=== PATIENT | female | born 1970 | race Caucasian/White ===

== ENCOUNTER 2020-02-21 14:24 | Emergency (ER) | payer OTHER ==
[~2020-02-21] VITALS: Ht 162.6 cm; Wt 79.5 kg
[2020-02-21 14:57] VITALS: BP 155/84
--- NOTE | 2020-02-21 15:18 | PHYS DOC ---
Past Medical History Past Medical History: GERD, High Cholesterol, Hypertension, Migraines Past Surgical History: Tonsillectomy Smoking Status: Current Some Day Smoker Alcohol Use: None Drug Use: None General Adult EDM: Chief Complaint: PAIN ON URINATION HPI: HPI: Patient is a 49 year old female who presents the ED today complaining of dysuria that began last week. Patient reports being seen at urgent care, she states she was diagnosed with UTI and given Bactrim which she finished. She states symptoms did not improve. Denies any fever, abdominal pain, nausea vomiting. Review of Systems: Review of Systems: Constitutional: Denies fever or chills. [] Eyes: Denies change in visual acuity. [] HENT: Denies nasal congestion or sore throat. [] Respiratory: Denies cough or shortness of breath. [] Cardiovascular: Denies chest pain or edema. [] GI: Denies abdominal pain, nausea, vomiting, bloody stools or diarrhea. [] : Reports dysuria Musculoskeletal: Denies back pain or joint pain. [] Integument: Denies rash. [] Neurologic: Denies headache, focal weakness or sensory changes. [] Psychiatric: Denies depression or anxiety. [] Heart Score: Risk Factors: Risk Factors: DM, Current or recent (<one month) smoker, HTN, HLP, family history of CAD, obesity. Risk Scores: Score 0 - 3: 2.5% MACE over next 6 weeks - Discharge Home Score 4 - 6: 20.3% MACE over next 6 weeks - Admit for Clinical Observation Score 7 - 10: 72.7% MACE over next 6 weeks - Early Invasive Strategies Allergies: Allergies: Allergies Coded Allergies Type Severity Reaction Last Updated Verified No Known Drug Allergies 11/03/15 No Physical Exam: PE: Constitutional: Well developed, well nourished, no acute distress, non-toxic appearance. [] HENT: Normocephalic, atraumatic, bilateral external ears normal, oropharynx moist, no oral exudates, nose normal. [] Eyes: PERRLA, EOMI, conjunctiva normal, no discharge. [] Neck: Normal range of motion, no tenderness, supple, no stridor. [] Cardiovascular:Heart rate regular rhythm, no murmur [] Lungs & Thorax: Bilateral breath sounds clear to auscultation [] Abdomen: Bowel sounds normal, soft, no tenderness, no masses, no pulsatile masses. [] Skin: Warm, dry, no erythema, no rash. [] Back: No tenderness, no CVA tenderness. [] Extremities: No tenderness, no cyanosis, no clubbing, ROM intact, no edema. [] Neurologic: Alert and oriented X 3, normal motor function, normal sensory function, no focal deficits noted. [] Psychologic: Affect normal, judgement normal, mood normal. [] EKG: EKG: [] Radiology/Procedures: Radiology/Procedures: [] Course & Med Decision Making: Course & Med Decision Making Pertinent Labs and Imaging studies reviewed. (See chart for details) This is a 49-year-old female patient presenting to the ED today with dysuria for a week. Was on Bactrim which she completed. She reports no improvement. Urine analysis is negative for infection. Urine will be sent for culture. Talked to patient about her options including following up with the PCP as well as urologist. Discharged on Pyridium. Encouraged to continue pushing fluids. She does not have back pain, nausea or vomiting. She is afebrile. BFKW Disclaimer: BFKW Disclaimer: This electronic medical record was generated, in whole or in part, using a voice recognition dictation system. Departure Departure Impression: Primary Impression: Dysuria Disposition: 01 HOME, SELF-CARE Condition: STABLE Referrals: LUCERO LOPEZ (PCP) follow up as soon as you can Patient Instructions: Dysuria-Brief Additional Instructions: Your urine analysis is negative for any infection. As discussed consider following up with your primary care doctor as well as [facility]. Scripts Phenazopyridine Hcl (PYRIDIUM) 100 Mg Tablet 1 TAB PO TID for urinary discomfort for 3 Days, #9 TAB 0 Refills Prov: LAUREN ZUÑIGA APRN 02/21/20 Justicifation of Admission Dx: Justifications for Admission: Justification of Admission Dx: N/A LAUREN ZUÑIGA APRN Feb 21, 2020 15:18
[2020-02-21 15:29] LABS: BILIRUBIN,URINE NEGATIVE (NEG); CLARITY,URINE CLEAR; COLOR,URINE YELLOW; NITRITE,URINE NEGATIVE (NEG); PH,URINE 6.5 (<5.0-8.0); PROTEIN,URINE NEGATIVE (NEG-TRACE); UROBILINOGEN,URINE 0.2 mg/dL (0.2 mg/dL)
[2020-02-21 15:45] LABS: BACTERIA,URINE FEW /HPF (0-FEW); RBC,URINE 0 /HPF (0-2); SQUAMOUS EPITHELIAL CELL,UR FEW /LPF; WBC,URINE 0 /HPF (0-4)
[2020-02-21] MEDS ORDERED: PHENAZOPYRIDINE 200 MG TABLET. PO ONE (16:15)
[2020-02-21] MEDS ORDERED: TAMSULOSIN 0.4 MG CAP.ER.24H. PO ONE (16:15)
[2020-02-21] MEDS ORDERED: PHEN100T82 PO (16:34)
== END 2020-02-21 16:47 | disposition home or self-care (01) ==
LOC: ER 14:24
DX: R30.0 Dysuria (principal); K21.9 Gastro-esophageal reflux disease without esophagitis; E78.00 Pure hypercholesterolemia, unspecified; I10 Essential (primary) hypertension; G43.909 Migraine, unspecified, not intractable, without status migrainosus; F17.200 Nicotine dependence, unspecified, uncomplicated
CPT/HCPCS: 81001; 81025; 99282; 99283

== ENCOUNTER → 2020-12-01 | Outpatient (CLI) | payer OTHER ==
[~2020-12-01] MED LIST: CLONAZEPAM1 MG PO; FAMO40TA4 PO; LISI20TA18 PO; METO100T5 PO; OMEP-346 PO; PHEN100T82 PO; PRAV20TA2 PO; TOPI50TA8 PO
[2020-12-01 13:58] LABS: BASO # 0.1 x10^3/uL (0.0-0.2); BASO % 1 % (0-3); EOS # 0.2 x10^3/uL (0.0-0.7); EOS % 2 % (0-3); HEMATOCRIT 36.9 % (36.0-47.0); HEMOGLOBIN 12.2 g/dL (12.0-15.5); LYMPH # 2.7 x10^3/uL (1.0-4.8); LYMPH % 31 % (24-48); MEAN CORPUSCULAR HEMOGLOBIN 27 pg (25-35); MEAN CORPUSCULAR HGB CONC 33 g/dL (31-37); MEAN CORPUSCULAR VOLUME 81 fL (79-100); MONO # 0.6 x10^3/uL (0.0-1.1); MONO % 7 % (0-9); NEUT # 5.2 x10^3/uL (1.8-7.7); NEUT % 59 % (31-73); PLATELET COUNT 304 x10^3/uL (140-400); RED BLOOD COUNT 4.57 x10^6/uL (3.50-5.40); RED CELL DISTRIBUTION WIDTH 14.4 % (11.5-14.5); WHITE BLOOD COUNT 8.8 x10^3/uL (4.0-11.0)
[2020-12-01 14:10] LABS: BILIRUBIN,URINE NEGATIVE (NEG); CLARITY,URINE CLEAR; COLOR,URINE YELLOW; NITRITE,URINE NEGATIVE (NEG); PROTEIN,URINE NEGATIVE (NEG-TRACE); UROBILINOGEN,URINE 0.2 mg/dL (0.2 mg/dL)
[2020-12-01 14:10] LABS: ALBUMIN 3.7 g/dL (3.4-5.0); CALCIUM 8.8 mg/dL (8.5-10.1); GFR 58.2; POTASSIUM 3.6 mmol/L (3.5-5.1); TOTAL BILIRUBIN 0.2 mg/dL (0.2-1.0); TOTAL PROTEIN 7.5 g/dL (6.4-8.2)
--- NOTE | 2020-12-01 14:11 | EKG ---
[facility] [address] [place] [address] Test Date: 2020-12-01 Test Time: 14:06:47 Pat Name: LUCILA VACA Department: Room: Gender: F Glove Turner: : 1970 Requested By: IVORY CALL Order Number: [id number] Reading MD: Jace Galindo Measurements Intervals Ethel Rate: 50 P: 54 MD: 164 QRS: 64 QRSD: 80 T: 59 QT: 458 QTc: 416 Interpretive Statements SINUS RHYTHM T ABNORMALITY IN ANTEROSEPTAL LEADS ABNORMAL ECG RI6.02 No previous ECG available for comparison Electronically Signed On 12-05-2020 8:58:16 CDT by Jace Galindo
[2020-12-01 14:16] LABS: BACTERIA,URINE 0 /HPF (0-FEW)
[2020-12-01 14:17] LABS: HYALINE CASTS, URINE FEW /HPF; RBC,URINE 0 /HPF (0-2); WBC,URINE 0 /HPF (0-4)
--- NOTE | 2020-12-01 14:34 | RAD ---
AP and Lateral Views of the Chest 12/01/2020 2:20 PM Indication: Reason: PRE OP HYSTERECTOMY DECEMBER 07. Instructions: / History: Comparison: None Findings: There is no focal consolidation or infiltrate identified. The cardiomediastinal silhouette is within normal limits. There is no evidence of pneumothorax or pleural effusion. No acute osseous a bnormalities are identified. Impression: No evidence of acute cardiopulmonary process. Electronically signed by: Raúl Lloyd MD (12/01/2020 2:31 PM) [id number]
[2020-12-02 04:26] LABS: HEMOGLOBIN A1C 6.1 % (4.8-5.6)
--- NOTE | 2020-12-05 10:09 | NUR ---
Pretesting Lab, chest xray and ekg results faxed to Dr. Veliz and confirmation received.
== END ==
LOC: SURGPAT 13:31
PROVIDERS: ATTEND Obstetrics & Gynecology
DX: Z01.818 Encounter for other preprocedural examination (principal); I10 Essential (primary) hypertension; R94.31 Abnormal electrocardiogram [ECG] [EKG]
CPT/HCPCS: 36415; 71046; 80053; 81001; 83036; 85025; 93005

== ENCOUNTER → 2020-12-07 | Day surgery (SDC) | payer OTHER ==
[2020-12-01 13:47] VITALS: BP 133/63
[~2020-12-07] VITALS: Ht 162.6 cm; Wt 75.0 kg
[~2020-12-07] MED LIST changes: +BUPIVACAINE-EPI 0.25% 30 ML VIAL KIT. ONE; +ESTROGENS, CONJ VAGINAL CREAM 30GM TUBE. ONE; +HYDROmorphone 2 MG/ML VIAL IVP PRN; +INDIGOTINDISULFONATE SODIUM 40 MG/5 ML AMPUL. ONE; +IV RINGERS,LACTATED 1000ML 1,000 ML IV SCH; +LIDOCAINE 2% PF 5 ML VIAL. ONE; +MIDAZOLAM HCL/PF 2 MG/2 ML VIAL. ONE; +MORPHINE SULFATE 2 MG/ML VIAL. IVP PRN; +ONDANSETRON PF 4 MG/2 ML VIAL. ONE; +PROCHLORPERAZINE 10 MG/2 ML VIAL. IVP PRN; +PROPOFOL 10 MG/ML (20ML) VIAL. IV ONE; +ROCURONIUM 50 MG/5 ML VIAL. ONE; +fentaNYL PF VIAL 100 MCG/2 ML VIAL IVP PRN; +fentaNYL PF VIAL 100 MCG/2 ML VIAL ONE
[2020-12-07 06:27] VITALS: BP 133/63
== END | disposition home or self-care (01) ==
LOC: SURG 06:01
PROVIDERS: ATTEND Obstetrics & Gynecology
DX: N93.9 Abnormal uterine and vaginal bleeding, unspecified (principal); Z53.8 Procedure and treatment not carried out for other reasons; I10 Essential (primary) hypertension; E78.00 Pure hypercholesterolemia, unspecified; K21.9 Gastro-esophageal reflux disease without esophagitis; M19.90 Unspecified osteoarthritis, unspecified site; Z98.51 Tubal ligation status; Z98.890 Other specified postprocedural states; Z79.899 Other long term (current) drug therapy
CPT/HCPCS: 36415; 81025; J0690; J2250; J2405; J2704; J3010; J3490

== ENCOUNTER 2020-12-13 08:11 | Observation (INO) | payer OTHER ==
[2020-12-07 09:07] VITALS: BP_SYST 114; BP_SYST 133; BP_DIAS 56; BP_DIAS 63
[2020-12-13] VITALS (9 sets, daily range): BP systolic 89–101; BP diastolic 40–58
[~2020-12-13] VITALS: Ht 162.6 cm; Wt 75.0 kg
[~2020-12-13 08:11] MED LIST changes: -ESTROGENS, CONJ VAGINAL CREAM 30GM TUBE. ONE; -HYDROmorphone 2 MG/ML VIAL IVP PRN; -INDIGOTINDISULFONATE SODIUM 40 MG/5 ML AMPUL. ONE; -IV RINGERS,LACTATED 1000ML 1,000 ML IV SCH; -LIDOCAINE 2% PF 5 ML VIAL. ONE; -MIDAZOLAM HCL/PF 2 MG/2 ML VIAL. ONE; -MORPHINE SULFATE 2 MG/ML VIAL. IVP PRN; -ONDANSETRON PF 4 MG/2 ML VIAL. ONE; -PROCHLORPERAZINE 10 MG/2 ML VIAL. IVP PRN; -PROPOFOL 10 MG/ML (20ML) VIAL. IV ONE; -ROCURONIUM 50 MG/5 ML VIAL. ONE; -fentaNYL PF VIAL 100 MCG/2 ML VIAL IVP PRN; -fentaNYL PF VIAL 100 MCG/2 ML VIAL ONE
[2020-12-13] MEDS ORDERED: MIDAZOLAM HCL/PF 2 MG/2 ML VIAL. ONE (08:37)
[2020-12-13] MEDS ORDERED: PROPOFOL 10 MG/ML (20ML) VIAL. IV ONE (08:37)
[2020-12-13] MEDS ORDERED: fentaNYL PF VIAL 250 MCG/5 ML VIAL ONE (08:37)
[2020-12-13] MEDS ORDERED: LIDOCAINE 2% PF 5 ML VIAL. ONE (08:37)
[2020-12-13] MEDS ORDERED: ROCURONIUM 50 MG/5 ML VIAL. ONE (08:38)
[2020-12-13] MEDS ORDERED: IV RINGERS,LACTATED 1000ML 1,000 ML IV ONE (09:00)
[2020-12-13] MEDS ORDERED: fentaNYL PF VIAL 100 MCG/2 ML VIAL IVP PRN ×2 (10:00)
[2020-12-13] MEDS ORDERED: IV RINGERS,LACTATED 1000ML 1,000 ML IV SCH (10:00)
[2020-12-13] MEDS ORDERED: MORPHINE SULFATE 2 MG/ML VIAL. IVP PRN (10:00)
[2020-12-13] MEDS ORDERED: HYDROmorphone 2 MG/ML VIAL IVP PRN (10:00)
[2020-12-13] MEDS ORDERED: GLYCOPYRROLATE 1 MG/5 ML VIAL. ONE (10:43)
[2020-12-13] MEDS ORDERED: NEOSTIGMINE METHYLSULFATE 5 MG/5 ML SYRINGE. ONE (10:43)
[2020-12-13] MEDS ORDERED: SEVOFLURANE > 120 MINUTES. IH ONE (11:44)
[2020-12-13] MEDS ORDERED: PROCHLORPERAZINE 10 MG/2 ML VIAL. ONE (12:15)
[2020-12-13] MEDS: PROCHLORPERAZINE 10 MG/2 ML VIAL. IVP PRN ×2 (12:17→12:25)
--- NOTE | 2020-12-13 12:22 | PDOC ---
BRIEF OPERATIVE NOTE Date: Dec 13, 2020 Pre-Op Diagnosis DUB/fibroids Post-Op Diagnosis same Procedure Performed LAVH/BSO Surgeon Dr. Yessy Call Assistant Professor Sculpture GAYLA Jackman Anesthesiologist Dr. Dumont Anesthesia Type: General Blood Loss 25cc IV Fluid 1L Urine Output 200cc clear Specimens Obtained cervix, uterus, bilateral tubes and ovaries Findings enlarged RV uterus, evidence of tubal ligation, cyst on right ovary Complications none Operative Note [id number] YESSY CALL MD Dec 13, 2020 12:22
[2020-12-13] MEDS ORDERED: oxyCODONE/APAP 5/325 1 TAB TABLET PO PRN (12:30)
[2020-12-13] MEDS ORDERED: 0.9 % SODIUM CHLORIDE 10 ML DISP.SYRIN. IV PRN (12:30)
[2020-12-13] MEDS ORDERED: CALCIUM CARBONATE 500 MG TAB.CHEW PO PRN (12:30)
[2020-12-13] MEDS ORDERED: MAG HYDROX/ALUMINUM HYD/SIMETH 30 ML ORAL.SUSP PO PRN (12:30)
[2020-12-13] MEDS ORDERED: ONDANSETRON PF 4 MG/2 ML VIAL. IV PRN (12:30)
[2020-12-13] MEDS ORDERED: diphenhydrAMINE 50 MG/ML VIAL IV PRN (12:30)
[2020-12-13] MEDS ORDERED: NALOXONE 0.4 MG/ML VIAL. IV PRN (12:30)
[2020-12-13] MEDS ORDERED: MORPHINE SULFATE 2 MG/ML VIAL. IV PRN (12:30)
[2020-12-13] MEDS ORDERED: SIMETHICONE 80 MG TAB.CHEW PO PRN (12:30)
[2020-12-13] MEDS ORDERED: MAGNESIUM HYDROXIDE 2,400 MG/30 ML ORAL.SUSP. PO PRN (12:30)
[2020-12-13] MEDS ORDERED: ZOLPIDEM 5 MG TABLET. PO PRN (12:30)
[2020-12-13] MEDS ORDERED: diphenhydrAMINE HCL 25 MG CAPSULE PO PRN (12:30)
[2020-12-13] MEDS ORDERED: LACTULOSE 20 GM/30 ML SOLUTION. PO PRN (12:30)
[2020-12-13] MEDS ORDERED: ESTRADIOL WEEKLY 0.1 MG PATCH. TD ONE (12:30)
--- NOTE | 2020-12-13 13:00 | NUR ---
Arrived to unit by bed. Awakens easily. No c/o at this time. Needing to use bathroom. Ambulated to bathroom with steady gait. Voided and returned back to bed. IVF's intact and infusing. O2 at 2l per n/c. SCD's on bilaterally. 3 Lap sites intact with some shadowing on all 3. Oriented to room and controls. Side rails up x's 2 with call light in reach. Spouse at bedside. Cont. monitor.
--- NOTE | 2020-12-13 13:06 | OP ---
DATE OF SURGERY: 12/13/2020 PREOPERATIVE DIAGNOSES: Dysfunctional uterine bleeding and fibroids. POSTOPERATIVE DIAGNOSES: Dysfunctional uterine bleeding and fibroids. PROCEDURES: Laparoscopic-assisted vaginal hysterectomy, bilateral salpingo-oophorectomy. SURGEON: Yessy Veliz MD PHOTOGRAMMETRIC COMPILATION SPECIALIST: GAYLA Tobar ANESTHESIOLOGIST: Dr. Dumont. ANESTHESIA: General. BLOOD LOSS: 25 mL URINE OUTPUT: 200 mL clear via Fishman catheter. IV FLUIDS: 1 liter of crystalloid. SPECIMENS: Cervix, uterus, bilateral tubes and ovaries. FINDINGS: An enlarged retroverted uterus. Evidence of tubal ligation and a small cyst on the right ovary. She also had some adhesive disease present in the upper abdomen on both sides, not exactly sure what this is from. She only had a bilateral tubal ligation as her prior abdominal surgery. This was not touched. It was out of our way and left alone. COMPLICATIONS: None. DESCRIPTION OF PROCEDURE: This patient was taken to the operating room where general anesthesia was placed. The patient was placed in dorsal lithotomy position in Ramakrishna stirrups. The patient's abdomen and vagina were both prepped and draped in the normal sterile fashion and a Fishman catheter had been inserted under sterile technique. Upon my arrival, a timeout was performed. Once everyone agreed on the patient, the site and the procedure, the antibiotics, the procedure was initiated. A bivalve speculum was placed in the patient's vagina. A single-tooth tenaculum was used to grasp the anterior lip of the cervix. A 10 mL of 0.25% Marcaine with epinephrine was used to circumferentially inject around the cervix for both hemodissection and hemostatic purposes later. The Valtchev uterine manipulator was placed through the endocervical os, locked on the single tooth tenaculum and the bivalve speculum was then removed. Top gloves were discarded and changed. Attention was then turned to the abdomen where a small infraumbilical skin incision was made over the existing scar. It was injected first with local 0.25% Marcaine with epinephrine, making a small incision using a curved Layne to dissect through the subcuticular layer of the fascia. The 5 mm Visiport was used to directly enter the abdominal cavity. Opening patient pressure was 3-4 mmHg. A direct abdominal placement was confirmed via the laparoscope. Carbon dioxide gas was used to appropriately insufflate the abdominal cavity to maintain a pressure of 15 mmHg. The overhead lights were dimmed and the patient was placed in Trendelenburg position. There were no adhesions to the anterior abdominal wall just in the right and left upper quadrants laterally to the sidewalls, so the abdomen was transilluminated finding an area clear of any vasculature. It was injected. A small incision was made and the 5 mm disposable atraumatic ports were placed under direct visualization for right and left lower quadrant ports. A 4-5 mL of air was placed in the trocar cuff. The camera was moved laterally to look at the umbilical port. Once it was found to be in the correct location, it was also insufflated with the 4-5 mL of air in the trocar cuff. Camera was moved back to the midline. The uterus was severely retroverted, very difficult to lift. The right upper quadrant was grossly normal. There were some adhesions in the middle area, in the pericolic gutter areas on both sides that were left alone. The appendix was free and normal on the right side, the left tube and ovary were normal. The right tube was okay. Just there was a cyst on the right ovary, but there was evidence of bilateral tubal ligation. She had an enlarged retroverted uterus that was filling the cul-de-sac. Once it was up and out, the ureters were seen on both sides coursing low in the pelvis. I could watch them peristalsing go down, so staying high on the infundibulopelvic ligament. Both tubes and ovaries were taken, cauterizing and cutting the IP ligament going over to the uterus and then crossing the rounds. This was done on both sides. The bladder flap was created sharply using an elevating pushing the uterus cephalad to the head of the bed using the Maryland to elevate the bladder flap and using the monopolar hook to cut across it. Once this was done, the uterine vessels were obtained on the right side and staying inside that pedicle, hugging the posterior uterus, cauterizing and cutting through the cardinal and broad ligaments and then crossing contralaterally and hugging the uterus and going down the side staying right on the cervix and uterus, the uterus was completely free and it started to homer. At this point, all instruments were removed and it was decided to go vaginally. The single tooth and Valtchev were removed. The weighted speculum was placed in the vagina. Thyroid Fabiana clamps were placed on the anterior and posterior lips of the cervix respectively. A scalpel was used to make a circumferential incision in the cervix. The posterior cul-de-sac was sharply entered with the curved Diallo scissors. A #0 Vicryl stitch was used to secure the posterior peritoneum here to the vaginal cuff. It was tagged with a curved Layne clamp. The needle was cut and passed off. The short weighted vaginal speculum was removed and replaced with the long Yvan speculum in the posterior cul-de-sac. The anterior was then sharply and bluntly, first using the tip of the suction to gently give traction and using the scalpel to gently push up the peritoneum off the cervix, the bladder peritoneum and then using an open Ray-Roshan 4 x 4 to gently push it up more. We were one cell layer away. I went ahead and took the right and left uterosacrals but the curved Westville was in that was literally one cell layer away entering the anterior cul-de-sac. Curved Christiano clamps x 2 were placed on the left uterosacral ligament where they were doubly clamped with curved Christiano's, cut with curved Diallo scissors and suture ligated x 2 with 0 Vicryl. The second one was taken through the vaginal cuff, securing the uterosacral ligament to the vaginal cuff and the needle was cut and passed off. This was done exactly the same on the right side, double clamping the uterosacrals with curved Heaneys, cutting with curved Diallo scissors, suture ligating x 2 with 0 Vicryl, taking the second one through the vaginal cuff, securing uterosacral ligament to the vaginal cuff, cutting and the needle off and tagging it with a straight Layne clamp. At this point, the anterior cul-de-sac was entered sharply and the Ray-Roshan was taken out and the curved Westville was placed in the anterior cul-de-sac. The right angle Mixter was taken through around the remaining pedicle on the left side and the vaginal LigaSure was used to cauterize and cut this freeing up the entire left side. This was then exactly the same on the right. Cervix, uterus, bilateral tubes and ovaries were delivered in total and passed off for permanent pathology. Sponge stick was used to examine the pedicles. They were dry. A long Allis was used to grasp the anterior bladder peritoneum. The long Yvan speculum was removed and replaced with a short weighted vaginal speculum in the vagina. A 2-0 Vicryl was taken through the anterior bladder peritoneum, left uterosacral ligament, posterior peritoneum and right uterosacral ligament, thus closing the peritoneum in a pursestring like fashion. Once this was done, the right and left uterosacral tags were clipped. The cuff was closed in an anterior to posterior running locked fashion with a full length 2-0 Vicryl and tied to the posterior cuff tag. Once this was done, the cuff was completely hemostatic. Everything was dry. All sponge, lap and needle counts had been correct x 2 by OR personnel below before going above. All gloves were discarded and changed and attention was turned back above for a second look. The overhead lights were dimmed. The patient was placed back in Trendelenburg position. Gas was reinsufflated. Copious irrigation revealed hemostasis. There was some slight superficial bleeding on the left side above the uterosacral ligament to seal and just using the Maryland to just hold pressure on it relieved entirely. I watched it for several minutes and released the gas. It was fine and then I put Carol Ann over everything else. It stayed white and powdery nothing welled up. I took the air out of all three trocar sites. Again watched the cul-de-sac, it remained powdery and white, nothing welling up in the cul-de-sac. All the pericolic gutters were clear. So at this point, the right lower quadrant, left lower quadrant ports were taken out under direct visualization. Gas was released from the umbilical port. All 3 port sites were closed with 4-0 nylon at the skin. The patient was awakened from anesthesia. Fishman was removed and taken to the recovery room in stable condition. [facility] DR: Denia TID: [id number]
[2020-12-13] MEDS: HYDROcodone/APAP 5/325MG 1 TAB TABLET PO PRN ×2 (16:22→22:18)
[2020-12-14 02:13] VITALS: BP 90/45
[2020-12-14] MEDS: HYDROcodone/APAP 5/325MG 1 TAB TABLET PO PRN (04:09)
[2020-12-14 05:40] LABS: CALCIUM 7.9 mg/dL (8.5-10.1); GFR 58.2; POTASSIUM 4.2 mmol/L (3.5-5.1)
[2020-12-14 06:01] VITALS: BP 85/49
--- NOTE | 2020-12-14 06:34 | NUR ---
BP remains low. Right arm : 85/49, left arm 83/34. Sitting up in bed, watching TV. Denies being dizzy, lightheaded and feeling faint. Message sent to Pharmacy for another bag of IVF.
--- NOTE | 2020-12-14 08:00 | NUR ---
Dr. Veliz on unit and made aware of pt low heart rate and bp.
--- NOTE | 2020-12-14 08:26 | PDOC ---
SURGICAL PROGRESS NOTE DATE: 12/14/20 TIME: 08:22 Subjective Feeling good, voiding without catheter, tolerating regular diet, scant VB Vital Signs Vital Signs Date Time Temp Pulse Resp B/P (MAP) Pulse Ox O2 Delivery O2 Flow Rate FiO2 12/14/20 06:01 98.0 49 18 85/49 (61) 98 Room Air 98.0 12/13/20 17:00 2.0 I&O Intake and Output 12/14/20 06:59 Intake Total 3340 ml Output Total 1725 ml Balance 1615 ml Intake Oral 640 ml IV Total 1000 ml Other 1700 ml Output Urine Total 1700 ml Estimated Blood Loss 25 ml PATIENT HAS A ORR: No General: Alert, Oriented X3, Cooperative, No acute distress HEENT: Atraumatic Heart: Other (low heart rate (sinus fabio prior to surgery)) Abdomen: Soft, Other (all port sites c/d/i) Extremities: No clubbing, No cyanosis, No edema, No tenderness/swelling Skin: No rashes, No breakdown Neuro: Normal speech Psych/Mental Status: Mental status NL, Mood NL Labs Laboratory Tests Test 12/13/20 07:47 12/14/20 03:40 Bedside Urine HCG, Qualitative Hcg negative (Negative) Hematocrit 32.4 % (36.0-47.0) Sodium Level 143 mmol/L (136-145) Potassium Level 4.2 mmol/L (3.5-5.1) Chloride Level 110 mmol/L (98-107) Carbon Dioxide Level 22 mmol/L (21-32) Anion Gap 11 (6-14) Blood Urea Nitrogen 17 mg/dL (7-20) Creatinine 1.0 mg/dL (0.6-1.0) Estimated GFR (Cockcroft-Gault) 58.2 Glucose Level 134 mg/dL (70-99) Calcium Level 7.9 mg/dL (8.5-10.1) Laboratory Tests Test 12/14/20 03:40 Hematocrit 32.4 % (36.0-47.0) Sodium Level 143 mmol/L (136-145) Potassium Level 4.2 mmol/L (3.5-5.1) Chloride Level 110 mmol/L (98-107) Carbon Dioxide Level 22 mmol/L (21-32) Anion Gap 11 (6-14) Blood Urea Nitrogen 17 mg/dL (7-20) Creatinine 1.0 mg/dL (0.6-1.0) Estimated GFR (Cockcroft-Gault) 58.2 Glucose Level 134 mg/dL (70-99) Calcium Level 7.9 mg/dL (8.5-10.1) I have reviewed the following labs, vitals, nursing Cardiovascular: HTN Assessment/Plan POD#1 s/p LAVH/BSO Routine po care dc to home later today light/limited activity x 2 weeks NPV x 6 weeks keep scheduled f/u in one week in the office already has narcotics at home ok for OTC ibuprofen as needed as well call or return sooner if any questions or concerns not limited to but including pain unrelieved with pain meds, increased or unexplained vb, T>100.4 may resume all home meds at home Justicifation of Admission Dx: Justifications for Admission: Justification of Admission Dx: N/A IVORY CALL MD Dec 14, 2020 08:26
--- NOTE | 2020-12-14 08:28 | PDOC3 ---
Discharge Summary Visit Information Date of Admission: Dec 13, 2020 Date of Discharge: Dec 14, 2020 Final Diagnosis DUB/fibroid uterus Brief Hospital Course Allergies Allergies Coded Allergies Type Severity Reaction Last Updated Verified No Known Drug Allergies 12/13/20 No Vital Signs Vital Signs Date Time Temp Pulse Resp B/P (MAP) Pulse Ox O2 Delivery O2 Flow Rate FiO2 12/14/20 06:01 98.0 49 18 85/49 (61) 98 Room Air 98.0 12/13/20 17:00 2.0 Lab Results Laboratory Tests Test 12/13/20 07:47 12/14/20 03:40 Bedside Urine HCG, Qualitative Hcg negative (Negative) Hematocrit 32.4 % (36.0-47.0) Sodium Level 143 mmol/L (136-145) Potassium Level 4.2 mmol/L (3.5-5.1) Chloride Level 110 mmol/L (98-107) Carbon Dioxide Level 22 mmol/L (21-32) Anion Gap 11 (6-14) Blood Urea Nitrogen 17 mg/dL (7-20) Creatinine 1.0 mg/dL (0.6-1.0) Estimated GFR (Cockcroft-Gault) 58.2 Glucose Level 134 mg/dL (70-99) Calcium Level 7.9 mg/dL (8.5-10.1) Laboratory Tests Test 12/14/20 03:40 Hematocrit 32.4 % (36.0-47.0) Sodium Level 143 mmol/L (136-145) Potassium Level 4.2 mmol/L (3.5-5.1) Chloride Level 110 mmol/L (98-107) Carbon Dioxide Level 22 mmol/L (21-32) Anion Gap 11 (6-14) Blood Urea Nitrogen 17 mg/dL (7-20) Creatinine 1.0 mg/dL (0.6-1.0) Estimated GFR (Cockcroft-Gault) 58.2 Glucose Level 134 mg/dL (70-99) Calcium Level 7.9 mg/dL (8.5-10.1) Brief Hospital Course Ms. Pedraza is a 50 old female who presented with DUB and fibroid uterus. She underwent LAVH/BSO yesterday without complication. She has had an unremarkable postoperative course except low heart rate, which preceeded the surgery. She is tolerating regular diet, ambulating well, voiding without the catheter and Scant vb. Assessment Assessment POD#1 s/p LAVH/BSO Routine po care dc to home later today light/limited activity x 2 weeks NPV x 6 weeks keep scheduled f/u in one week in the office already has narcotics at home ok for OTC ibuprofen as needed as well call or return sooner if any questions or concerns not limited to but including pain unrelieved with pain meds, increased or unexplained vb, T>100.4 may resume all home meds at home Discharge Information Condition at Discharge: Stable Follow Up: Weeks Disposition/Orders: D/C to Home Scheduled Clonazepam (Clonazepam) 1 Mg Tablet, 1 MG PO TID for FOR ANXIETY, (Reported) Entered as Reported by: YAYA DIEZ on 12/01/201343 Last Taken: Unknown Dose on 12/13/20799 Last Action: Last Taken Edited on 12/13/20840 by YOAV DALAL Famotidine (Famotidine) 40 Mg Tablet, 40 MG PO HS for GERD, (Reported) Entered as Reported by: YAYA DIEZ on 12/01/201343 Last Taken: Unknown Dose on 12/12/20899 Last Action: Last Taken Edited on 12/13/20840 by YOAV DALAL Lisinopril (Lisinopril) 20 Mg Tablet, 1 TAB PO DAILY for HTN, #90 Ref 3 (Reported) Entered as Reported by: YAYA DIEZ on 12/01/201343 Last Taken: Unknown Dose on 12/12/20899 Last Action: Last Taken Edited on 12/13/20840 by YOAV DALAL Metoprolol Succinate (Toprol Xl) 100 Mg Tab.er.24h, 100 MG PO DAILY for FOR HYPERTENSION, #30 Ref 0 (Reported) Entered as Reported by: YAYA DIEZ on 12/01/201343 Last Taken: Unknown Dose on 12/13/20799 Last Action: Last Taken Edited on 12/13/20840 by YOAV ADLAL Omeprazole (Omeprazole) 20 Mg Tab.rap.dr, 40 MG PO DAILY for GERD, (Reported) Entered as Reported by: YAYA DIEZ on 12/01/201344 Last Taken: Unknown Dose on 12/13/20799 Last Action: Last Taken Edited on 12/13/20840 by YOAV DALAL Pravastatin Sodium (Pravastatin Sodium) 20 Mg Tablet, 20 MG PO DAILY for CHOL, (Reported) Entered as Reported by: YAYA DIEZ on 12/01/205 Last Taken: Unknown Dose on 12/12/202099 Last Action: Last Taken Edited on 12/13/20840 by YOAV DALAL Topiramate (Topiramate) 50 Mg Tablet, 50 MG PO BID for MIGRAINE, (Reported) Entered as Reported by: YAYA DIEZ on 12/01/204 Last Taken: Unknown Dose on 12/12/202099 Last Action: Last Taken Edited on 12/13/20840 by YOAV DALAL Patient Instructions Patient Instructions POD#1 s/p LAVH/BSO Routine po care dc to home later today light/limited activity x 2 weeks NPV x 6 weeks keep scheduled f/u in one week in the office already has narcotics at home ok for OTC ibuprofen as needed as well call or return sooner if any questions or concerns not limited to but including pain unrelieved with pain meds, increased or unexplained vb, T>100.4 may resume all home meds at home Justicifation of Admission Dx: Justifications for Admission: Justification of Admission Dx: Yes IVORY CALL MD Dec 14, 2020 08:28
[2020-12-14 11:12] VITALS: BP 93/52
--- NOTE | 2020-12-14 13:25 | NUR ---
Discharge instructions given. Answered questions and concerns. Verbalized understanding. Pt discharged home accompanied by spouse. Escorted out by w/c.
--- NOTE | 2020-12-15 18:07 | PATHOLOGY ---
[facility] Accession Number: [id number] . 01 Material submitted: . uterus - UTERUS CERVIX BILATERAL TUBES AND OVARIES . 01 Clinical history: . DYSFUNCTIONAL UTERINE BLEEDING;UTERINE FIBROIDS LAVH,BS+O . 02 Diagnosis: Uterus and attached bilateral fallopian tubes and ovaries, laparoscopic assisted vaginal hysterectomy with bilateral salpingo-oophorectomy: - Nabothian cysts and endocervical gland tunnel cluster of endocervix. - Proliferative endometrium. - Adenomyosis, uterine corpus, focal, with myometrial hypertrophy (uterine weight 138 grams). 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 - Paratubal cysts, bilateral. - Status post bilateral tubal ligation. - Mild hydrosalpinx of left fallopian tube. - Regressing cystic follicle of right ovary. - Focal endometriosis of right periovarian soft tissue. - Regressing follicular cyst and small simple serous cyst of left ovary. (JPM:ciro; 12/14/2020) BANNER 12/15/2020 1051 Local . 02 Comment: There is no atypia or evidence of malignancy. (ZACH:ciro; 12/14/2020) . 02 Electronically signed: . Jhoan Novak MD, Pathologist NPI- [id number] . 01 Gross description: . Fixative: Formalin Labeled: Uterus, cervix, bilateral tubes and ovaries Specimen received: In intact uterus/cervix with attached bilateral ovaries and fimbriated fallopian tube (previously ligated) Uterus weight: 138 g Uterus: 9.5 cm superior to inferior, 7.0 cm cornu to cornu, and 4.5 cm anterior to posterior Serosa: Smooth, congested pink-lyman Ectocervix: Glistening pink-lyman Cervical os: Patent, measuring 1.3 cm Endocervical canal: 3.0 cm in length and 0.4-0.6 cm in width Endometrial cavity: 4.5 cm in length and 2.5 - 3.0 cm in width Endometrial thickness: 0.1-0.2 cm Myometrial thickness: 2.0-2.6 cm Lesions/abnormalities: Sectioning of the cervix reveals congested pink-lyman cut surface with multiple cysts ranging from 0.3-0.6 cm filled with thick clear gel. Sectioning of the uterus reveals trabeculated pink-lyman cut surfaces with two focal firm whorled pattern lesions ranging from 0.4-0.8 cm. Right fallopian tube: 4.0 cm in length and 0.2-0.4 centimeters in diameter with attached fimbria measuring 1.3 x 0.8 x 0.6 cm. Right fallopian tube appearance: Congested pink-lyman and edematous with multiple paratubal cysts ranging from 0.3-1.8 cm filled with clear fluid. Left fallopian tube: 4.5 cm in length and 0.4-0.6 with attached fimbria and measures 2.0 x 1.0 x 0.4. Left fallopian tube appearance: Dilated (0.2-0.4 cm), congested pink-lyman with multiple paratubal ranging from 0.3 and 0.6 cm filled with clear/cloudy fluid. Right ovary: 4 g, 2.8 x 2.3 x 1.8 cm Right ovary appearance: Dull pink-lyman (inked green), sectioning reveals congested pink-lyman surface with a focal cyst measuring 0.8 x 0.8 x 0.6 cm with clear fluid Left ovary: 18 g, 5.0 x 3.5 x 3.0 cm Left ovary appearance: Smooth, palpable nodular pink-lyman (blue ink), sectioning reveals congested pink-lyman cut surfaces with a focal cyst measuring 4.0 x 4.0 x 3.0 cm filled with pink hemorrhagic fluid. The wall thickness ranges from 0.1-0.2 cm. . The specimen is representatively in cassettes A1 through A10. A1 12:00 cervix A2 6:00 cervix A3 anterior endomyometrium A4 posterior endomyometrium A5 - endomyometrium whorled patterned lesion A6 -right fallopian tube (cross sections, paratubal cyst, and a perpendicular section of the fimbria) A7 -left fallopian tube (cross sections, paratubal cyst, and perpendicular section of the fimbria) A8- right ovary, green inked (cross section and cyst) A9- left ovary, blue inked (cross sections and cyst) T09-giwi ovary, blue inked, perpendicular sections of the cyst wall (BLJ; 12/13/2020) . BLJ/BLJ 12/14/2020 2242 Local . 02 Pathologist provided ICD-10: N88.8, N80.0, D25.9, N83.8, N83.02 . 02 CPT . 266182 Specimen Comment: A courtesy copy of this report has been sent to [phone] Specimen Comment: Report sent to / DR LOPEZ Specimen Comment: Report sent to Performed at: 01 [facility] [address] [facility] [address], [place] [id number] MD Maxwell Glez MD Phone: [phone] Performed at: 02 [facility] [address] [place], [place] [id number] MD Jhoan Novak MD Phone: [phone]
== END 2020-12-14 13:25 | disposition home or self-care (01) ==
LOC: SURG 08:11 → 4 SOUTHEST 12:30
PROVIDERS: ADMIT Obstetrics & Gynecology; ATTEND Obstetrics & Gynecology
DX: N93.8 Other specified abnormal uterine and vaginal bleeding (principal); D25.9 Leiomyoma of uterus, unspecified; I10 Essential (primary) hypertension; N83.201 Unspecified ovarian cyst, right side; N85.4 Malposition of uterus; Z98.51 Tubal ligation status; Z30.2 Encounter for sterilization
CPT/HCPCS: 36415; 58552; 80048; 81025; 85014; 86850; 86900; 86901; 88307; 96360; 96361; A4314; A4930; A6219; G0378; G0379; J0690; J0780; J2250; J2704; J2710; J3010; J3480; J3490; A4351; A4657

== ENCOUNTER 2021-07-20 09:49 | Emergency (ER) | payer OTHER ==
[~2021-07-20] VITALS: Ht 162.6 cm; Wt 69.1 kg
[~2021-07-20 09:49] MED LIST changes: -BUPIVACAINE-EPI 0.25% 30 ML VIAL KIT. ONE
[2021-07-20] MEDS ORDERED: ONDA4TAB12 PO (10:45)
--- NOTE | 2021-07-20 10:45 | PHYS DOC ---
Past Medical History Past Medical History: GERD, High Cholesterol, Hypertension, Migraines Past Surgical History: Hysterectomy, Tonsillectomy, Other Additional Past Surgical Histo: bilateral wrist surgery Smoking Status: Former Smoker Alcohol Use: None Drug Use: None General Adult EDM: Chief Complaint: SHORTNESS OF BREATH HPI: HPI: Patient is a 50 year old F who is known COVID-19+ presents with 4-day history of body aches, fatigue, nasal congestion, sore throat, shortness of breath and nausea. Patient reports her symptoms started and she tested positive on the same day. She reports no improvement in symptoms. Patient denies fever, chills, cough, sputum production, vomiting, diarrhea, constipation. She states she is supposed to go back to work on Friday, but is unsure if she will feel well enough. Review of Systems: Review of Systems: Constitutional: See HPI Eyes: Denies change in visual acuity, visual field deficits or discharge HENT: See HPI Respiratory: See HPI Cardiovascular: Denies chest pain, palpitations or edema GI: See HPI : Denies dysuria or hematuria Musculoskeletal: Denies back pain or joint pain Integument: Denies rash or other skin lesion Neurologic: Denies headache, focal weakness or sensory changes Heart Score: C/O Chest Pain: No Allergies: Allergies: Allergies Coded Allergies Type Severity Reaction Last Updated Verified No Known Drug Allergies 12/13/20 No Physical Exam: PE: Constitutional: Well developed, well nourished, no acute distress, non-toxic appearance. HENT: Normocephalic, atraumatic, bilateral external ears without deformity or discharge, oropharynx moist, no oral exudates, nose without deformity or discharge, bilateral turbinates swollen and erythematous. Eyes: EOMI, conjunctiva normal, no discharge. Neck: Normal range of motion, no tenderness, supple, no stridor. Cardiovascular: Heart rate regular rhythm, no murmur. Lungs & Thorax: Bilateral breath sounds clear to auscultation. Abdomen: Bowel sounds normal, soft, no tenderness, no masses, no pulsatile masses. Skin: Warm, dry, no erythema, no rash. Current Patient Data: Vital Signs: Vital Signs Date Time Temp Pulse Resp B/P (MAP) Pulse Ox O2 Delivery O2 Flow Rate FiO2 07/20/21 10:03 98.1 76 20 111/55 (73) 98 Room Air 98.1 Course & Med Decision Making: Course & Med Decision Making Pertinent Labs and Imaging studies reviewed. (See chart for details) Patient is a known COVID-positive 50-year-old female who presents with 4-day history of viral syndrome symptoms. Patient advised that COVID-19 is a viral illness, and so that there is no cure. Had a discussion about her current symptoms and how to treat them. Patient given return precautions. She understands and is agreeable to discharge plan. Gavin Disclaimer: Gavin Disclaimer: This electronic medical record was generated, in whole or in part, using a voice recognition dictation system. Departure Departure Impression: Primary Impression: COVID-19 virus infection Disposition: HOME / SELF CARE / HOMELESS Condition: STABLE Referrals: LUCERO LOPEZ (PCP) Patient Instructions: Incentive Spirometer, Viral Syndrome Additional Instructions: Follow the following supportive treatment measures: - Cool mist humidifier with plain water at bedside while you sleep - Mucinex (guaifenesin) per box instructions, throat lozenges with benzocaine (Cepacol brand) for sore throat - Zofran (ondansetron) for nausea - Alternate ibuprofen and acetaminophen every four hours for body aches/fever/headache - Use the incentive spirometer 5 times per day with 10 deep breaths each time. If antibiotics were prescribed, take them as directed. You have been tested for or diagnosed with COVID-19 infection. It is an infection caused by a new type of coronavirus. COVID-19 will cause cold-like or mild flu symptoms in most. It can cause more severe symptoms like problems breathing in some. There is no treatment for COVID-19. The body will clear the infection over time. Self-care will help to ease discomfort. Steps to Take: - Rest as needed. - Choose healthy foods including fruits and vegetables. Drink water throughout the day. - Get plenty of sleep each night. - If you smoke, try to quit. It may ease breathing. - Avoid alcohol. - Keep Others Healthy - The virus can spread to others. Droplets are released every time you sneeze or cough. The droplets can get into the mouth, nose, or eyes of people near you and lead to infection. To lower the chances of spreading COVID-19 to others: Stay at home until your doctor has said it is safe to leave. If you tested positive this will mean staying isolated until both of the following are true: - At least 10 days have passed since the start of illness. - You are free of fever for at least 72 hours without the use of medicine. During this time: - Avoid public areas, events, or transportation. Do not return to work or school until your doctor has said it is safe to do so. - Call ahead if you need to go to a medical center. Let them know you may have COVID-19. It will help them guide you where to go. They may also ask you to wear a facemask when you come to the office. - If you call for emergency medical services, let them know you may have COVID- 19. While at home: - Try to avoid close contact with others. Stay about 6 feet away. - If possible, spend most of your time in a separate room from others. - Use a face mask if you will be in close contact with others such as sharing a room or vehicle. - Have someone wipe down common surfaces in the home. Use household party host every day on areas like doorknobs, counters, or sinks. - Cough or sneeze into a tissue. Throw the tissue away right after use. If a tissue is not available, cough or sneeze into your elbow. - Wash your hands often. Wash them after sneezing or coughing. Use soap and water and wash or at least 20 seconds. Alcohol based hand housecleaner can be used if soap and water is not available. - Do not prepare food for others. Avoid sharing personal items like forks, spoons, or toothbrushes. - Avoid close contact with pets while you are sick. There is no evidence of the virus passing to pets. This is a safety step until more is known about this virus. - Isolation can be frustrating. Social interaction can help. Keep in touch with friends and family through phone and tech options. You can still interact with others in your home, just keep a safe distance of about 6 feet. Follow-up: - Your doctors office will check in with you to see if there are any changes in your health. - You may be asked to keep track of symptoms to share with them. They will also let you know when you are clear to be in public again. Contact your doctor if your recovery is not going as you expect. Get emergency care if you have problems such as: - Trouble breathing with oxygen saturation <90% - Nonstop chest pain or pressure - Changes in awareness, confusion, or problems waking - Lips or face have bluish color - Worsening of symptoms If you think you have an emergency, call for emergency medical services right away. As taken from [facility] Ondansetron (ONDANSETRON ODT) 4 Mg Tab.rapdis 1 TAB PO PRN Q6-8HRS, #20 TAB Prov: RYANNE BURNS 07/20/21 RYANNE BURNS Jul 20, 2021 10:45
[2021-07-20 11:05] VITALS: BP 110/52
== END 2021-07-20 11:13 | disposition home or self-care (01) ==
LOC: ER 09:49
DX: U07.1 COVID-19 (principal); K21.9 Gastro-esophageal reflux disease without esophagitis; E78.00 Pure hypercholesterolemia, unspecified; I10 Essential (primary) hypertension; G43.909 Migraine, unspecified, not intractable, without status migrainosus; Z87.891 Personal history of nicotine dependence
CPT/HCPCS: 99283